=== PATIENT | female | born 1980 | race Caucasian/White ===

== ENCOUNTER 2024-06-21 08:13 | Emergency (ER) | payer BC, SELFPAY ==
[2024-06-21 08:14] VITALS: BP 152/89
[2024-06-21 08:18] VITALS: BP 152/89
[2024-06-21 08:50] VITALS: BMI 38.8
[2024-06-21 09:11] LABS: Urine Albumin Negative (Neg - Trace); Urine Bilirubin Negative (Negative); Urine Character Clear (Clear); Urine Color Yellow; Urine Glucose Negative (Negative); Urine Ketone Negative (Negative); Urine Leukocyte Negative (Negative); Urine Nitrite Negative (Negative); Urine Occult Blood Negative (Negative); Urine Urobilinogen Negative (Neg - 1+)
--- NOTE | 2024-06-21 09:18 | ED.GENMED ---
History of Present Illness
General
Chief Complaint: Urinary Symptoms
Source: patient
Exam Limitations: none
Time Seen by Provider: 06/21/24 08:45
Nursing documentation reviewed up to this point in time: agreed with
History of Present Illness
History of Present Illness:
pt is a 43 y/o F with h/o kidney stones
here for feeling inc urination at night the past 2 nights - she went every 3 hours or so last night
she has some urge to go, and does void, but it is not painful
she has fibroids and usually during menstual cycle she will pee more often
just completed her menses
she has not dysuria, hematura, back pain, fever, chills
she ws just at her pcp a few weeks ago and mentioned these symptoms and had her a1c checked and urine and a1c is 5.8 and urine was neg
she was told maybe she would need to f/u for overactive bladder with urology
she sees a urologist at [facility]
hasn't mad the appt yet
she does repot drinking setlzer before bed last night
Past History
Past History
ED Past Medical History: Other (kidney stones)
ED Past Surgical History: None
Social History
Tobacco: Non-smoker
Alcohol: None
Review of Systems
Review of Systems
Allergies reviewed?: Yes
All Other Systems: Not applicable
Phy Exam
Physical Exam
Physical Exam:
GENERAL: Alert , in no apparent distress
CARDIAC: Regular rate and rhythm .
LUNGS: Clear breath sounds bilaterally, no acute respiratory distress, no wheezes/rales/rhonchi
ABDOMEN: Soft, without focal tenderness, no r/g, no cvat, normal bowel sounds
NEUROLOGICAL: Alert and oriented, no focal neuro deficits
SKIN: Warm and dry, skin intact.
MUSCULOSKELETAL: No edema, well perfused. neg lara's sign
PSYCH: Normal and appropriate interaction.
Course
Orders/Labs/Results
Orders:
Orders
06/21/24 08:54
Urinalysis Reflex To Culture Urgent
Date Specimen was Collected: 06/21/24
Time Specimen was Collected: 08:49
Vital Signs
Initial and Last Documented VS:
Initial Vital Signs
Temp Pulse Resp BP Pulse Ox
98.2 F 73 18 152/89 100
06/21/24 08:14 06/21/24 08:14 06/21/24 08:14 06/21/24 08:14 06/21/24 08:14
Last Documented Vital Signs
Temp Pulse Resp BP Pulse Ox
98.2 F 71 14 133/84 97
06/21/24 08:18 06/21/24 09:28 06/21/24 09:28 06/21/24 09:28 06/21/24 09:28
MDM/Problems Addressed
Differential Diagnosis Includes:
URINARY RETENTION, OVERACTIVE BLADDER, INTERSTITIAL CYCSITIS, UTI
MDM/Problems Addressed:
43 y/o F
noticed for about a few weeks she has had intermtiten urge at night to pee, 2-3 times a night
saw pcp
had normal ua and normal A1C
says she has had more urge lat night and wanted to get checked
did drink seltzer before bed
no pain
no hematuria
no flank pain
exam uremarkable
ua neg
PVR bladder scan 0ml
f/u with urology
avoid liquids at night
gerd diet
and pyridium for tonight x 1 dose
*Critical Care Note
Total Time (30-74mins, 75-104mins- exclusive of procedures): Not Applicable
ED Attending Note
-
Portions of this chart may have been created with voice recognition software.� Occasional wrong word or��sound alike� substitutions may have occurred due to the inherent limitations of voice recognition software.
Discharge Plan
Departure
Patient Disposition: Home (Routine Discharge)
Date of Disposition: 06/21/24
Time of Disposition: 09:35
Patient with high blood pressure during this ER visit?: No
Condition: Fair
Covid-19: Not Applicable
Discharge Problem:
Nocturia
Instructions: Bladder Pain Syndrome (Interstitial Cystitis) (DC)
Prescriptions:
New
phenazopyridine [Pyridium] 200 mg tablet
200 mg PO TID PRN (Reason: Pain) Qty: 6 0RF
No Action
phenazopyridine [Pyridium] 100 mg tablet
100 mg PO TID PRN (Reason: Pain) Qty: 6 0RF
Referrals:
Janelle Munguia DO [Family Provider] - Follow up in 2-3 days
Activity Restrictions/Additional Instructions:
WE ARE NOT SURE THE CAUSE OF YOUR SYPMTOMS
YOUR URINE WAS NORMAL
YOU ARE EMPTYING YOUR BLADDER FULLY
IT PROBABLY IS A GOOD IDEA TO FOLLOW UP WITH YOUR UROLOGIST
IN THE MEANTIME, YOU CAN TRY A DAY OF PYRIDIUM 200 MG 2-3 TIMES A DAY TO SEE IF THIS HELPS, IT WILL COLOR YOUR PEE ORANGE
STOP DRINKING LIQUIDS A FEW HOURS BEFORE BED
FOLLOW UP WITH YOUR DOCTOR AND YOUR UROLOGIST
RETURN FO R BACK PAIN, FEVER, VOMITING, BLOODY URINE ORANY CONCERNS.
TRY A DIET FOR GERD (LOW ACID, NO CITRUS, NOT EATING CHOCOLATE/CAFFEINE) AND SEE IF THIS HELPS.
Interventions
Interventions:
*Risk Screen - Suicide Last Done: 06/21/24 08:14
*General Assessment Last Done: 06/21/24 08:50
*Neglect/Abuse Screening Last Done: 06/21/24 08:14
ED- Fall Risk Assessment Last Done: 06/21/24 08:50
*ED COVID-19 Vaccine History Last Done: 06/21/24 08:14
*Nursing Disposition Last Done: 06/21/24 09:54
ED-Female Genitourinary Assessment Last Done: 06/21/24 08:50
Discharge Date and Time
Discharge Date/Time: 06/21/24 09:55
Print Language: MOH[place]
[2024-06-21 09:28] VITALS: BP 133/84
--- NOTE | 2024-06-21 09:51 | EDRN ---
Kalee SEGURA in room w/pt at this time.
== END 2024-06-21 09:55 | disposition home or self-care (01) ==
LOC: EMR 08:13
PROVIDERS: Physician Assistant; EMERGENCY PHYSICIAN Emergency Medicine; FAMILY PHYSICIAN Family Medicine
DX: R35.1 Nocturia (principal); R35.0 Frequency of micturition; K21.9 Gastro-esophageal reflux disease without esophagitis; D25.9 Leiomyoma of uterus, unspecified; Z87.442 Personal history of urinary calculi; Z88.1 Allergy status to other antibiotic agents; Z88.8 Allergy status to other drugs, medicaments and biological substances
CPT/HCPCS: 99283; 51798; 81003

== ENCOUNTER 2024-08-21 16:53 | Emergency (ER) | payer BC, SELFPAY ==
[2024-08-21 17:03] VITALS: BP 154/87
--- NOTE | 2024-08-21 17:04 | ED.GENMED ---
ED Provider Triage
<Radames Jackson PA-C - Last Filed: 08/21/24 17:06>
-
Patient seen by provider in Triage?: Seen in Triage
Attestation: A medical screening examination has been initiated by a qualified medical provider. Based on the assessment performed at this time, it has been determined that an emergent medical condition may exist and the patient has been informed
that further medical evaluation and possible additional diagnostic testing may be needed.
HPI: 44-year-old female presenting to the ER for cold and flulike symptoms that have been ongoing for 2 days. Patient significant other also has similar symptoms. Did not do any testing prior to arrival to the ER today. COVID and flu testing
ordered. Patient is otherwise hemodynamically stable and in no acute distress
GENERAL: Alert , in no apparent distress
EYE: No visual abnormalities.
NECK: Trachea midline
ENT: No visible abnormalities.
LUNGS: No acute respiratory distress
NEUROLOGICAL: Alert and oriented
SKIN: Skin intact. No visible changes.
MUSCULOSKELETAL: Moving extremities normally
PSYCH: Normal and appropriate interaction.
This is a medical evaluation conducted in person to initiate diagnostic evaluation and provide initial therapeutics. Please see further documentation by the treating clinician.
History of Present Illness
<Radames Jackson PA-C - Last Filed: 08/21/24 17:06>
General
Chief Complaint: Cold/Flu/URI Symptoms
Time Seen by Provider: 08/21/24 17:30
<Rogers Glez DO - Last Filed: 08/21/24 18:37>
History of Present Illness
History of Present Illness:
TIME OF INITIAL ENCOUNTER: 5:30 PM
HPI: The patient has cold and flulike symptoms that have been ongoing for 2 days. Patient significant other also has similar symptoms. Did not do any testing prior to arrival to the ER today. One of her main symptoms though is pressure in the
face and she feels like she did when she has had sinus infection successfully treated for antibiotics in the past. She has an associated 'scratchy' throat. No fevers. No trouble breathing.
EXAM:
GENERAL: Well appearing in minimal distress
HEENT: Moist oral mucosa, normal posterior oropharynx with no edema, erythema, nor exudate, very mild bilateral maxillary sinus tenderness
CARDIOVASCULAR: No murmurs, normal heart rate, regular rhythm, No chest wall tenderness
PULMONARY: No respiratory distress, breath sounds are clear and equal
ABDOMEN: Soft with no peritoneal signs, no tenderness
NEUROLOGIC: Excellent strength all extremities, no coordination deficits
PSYCHIATRIC: Appropriate mental status, normal insight and judgement
EXTREMITIES: Nontender, no edema, moves all extremities equally
SKIN: No rash, no lesions
NUMBER AND COMPLEXITY OF PROBLEMS ADDRESSED AT THE ENCOUNTER
� Chronic conditions affecting care: GERD, anxiety, high blood
� Acute Exacerbation and/or Progression of Chronic Illness: This is an acute problem
� Differential Diagnosis includes: Viral syndrome, influenza, COVID, sinusitis
AMOUNT AND/OR COMPLEXITY OF DATA TO BE REVIEWED AND ANALYZED
� I performed an independent evaluation of and my interpretation is:
EKG:
CT:
X-rays:
Laboratory Studies: COVID and flu testing are both negative
Other:
� Review of other/old records: CBC and chemistries in February 2023 are unremarkable
� Clinical information was obtained by an independent historian: I spoke to the at bedside
� Prescriptions/Medications Considered but not given:
� Further testing considered but not performed:Did not order a chest x-ray as lungs are clear and she has no respiratory complaints
RISK OF COMPLICATIONS AND/OR MORBIDITY OR MORTALITY OF PATIENT MANAGEMENT
� Social determinants of health affecting care: Lives at home
� Discussion with other providers:
� Escalation of care including admission/observation vs risk of discharge considered: Suspect more of a viral syndrome as she has pressure in the face, congestion, and sore throat. She states she was successfully treated with
antibiotics for similar symptoms related to sinusitis in the past.
ANY OTHER UPDATES:
6 PM: I reassessed patient. Very well-appearing.
Past History
<Radames Jackson PA-C - Last Filed: 08/21/24 17:06>
Past History
ED Past Medical History: Other (kidney stones)
ED Past Surgical History: None
Social History
Tobacco: Non-smoker
Alcohol: None
Phy Exam
<Rogers Glez DO - Last Filed: 08/21/24 18:37>
Physical Exam
Physical Exam:
See HPI
Course
<Radames Jackson PA-C - Last Filed: 08/21/24 17:06>
Orders/Labs/Results
Orders:
Orders
08/21/24 17:06
COVID-19 Antigen Urgent
Source: Nasal Swab
Influenza A+B Rapid Molecular Urgent
KENZIE Source: Nasal Swab
Specimen Description:
Vital Signs
Initial and Last Documented VS:
Initial Vital Signs
Temp Pulse Resp BP Pulse Ox
36.7 C 68 16 154/87 100
08/21/24 17:03 08/21/24 17:03 08/21/24 17:03 08/21/24 17:03 08/21/24 17:03
Last Documented Vital Signs
Temp Pulse Resp BP Pulse Ox
36.7 C 68 16 154/87 100
08/21/24 17:03 08/21/24 17:03 08/21/24 17:03 08/21/24 17:03 08/21/24 17:03
<Rogers Glez DO - Last Filed: 08/21/24 18:37>
Orders/Labs/Results
Orders:
Orders
08/21/24 17:06
COVID-19 Antigen Urgent
Source: Nasal Swab
Influenza A+B Rapid Molecular Urgent
KENZIE Source: Nasal Swab
Specimen Description:
Vital Signs
Initial and Last Documented VS:
Initial Vital Signs
Temp Pulse Resp BP Pulse Ox
36.7 C 68 16 154/87 100
08/21/24 17:03 08/21/24 17:03 08/21/24 17:03 08/21/24 17:03 08/21/24 17:03
Last Documented Vital Signs
Temp Pulse Resp BP Pulse Ox
36.7 C 68 16 154/87 100
08/21/24 17:03 08/21/24 17:03 08/21/24 17:03 08/21/24 17:03 08/21/24 17:03
<Rogers Glez DO - Last Filed: 08/21/24 18:37>
*Critical Care Note
Total Time (30-74mins, 75-104mins- exclusive of procedures): Not Applicable
ED Attending Note
<Radames Jackson PA-C - Last Filed: 08/21/24 17:06>
-
Portions of this chart may have been created with voice recognition software.� Occasional wrong word or��sound alike� substitutions may have occurred due to the inherent limitations of voice recognition software.
Discharge Plan
Departure
Patient Disposition: Home (Routine Discharge)
Date of Disposition: 08/21/24
Time of Disposition: 18:00
Patient with high blood pressure during this ER visit?: Yes
Discharge Problem:
Acute viral syndrome, Acute sinusitis
Instructions: Viral Syndrome (DC)
Prescriptions:
New
amoxicillin-pot clavulanate 875-125 mg tablet
1 tab PO BID Qty: 14 0RF
No Action
phenazopyridine [Pyridium] 100 mg tablet
100 mg PO TID PRN (Reason: Pain) Qty: 6 0RF
phenazopyridine [Pyridium] 200 mg tablet
200 mg PO TID PRN (Reason: Pain) Qty: 6 0RF
Activity Restrictions/Additional Instructions:
I suspect that your symptoms are related to a viral syndrome. COVID and flu testing are negative. Although I do not recommend starting an antibiotic yet, I am sending a prescription to your pharmacy to start only if your symptoms persist/worsen
over the next few days. I also recommend trying Zyrtec-D which can be purchased at any pharmacy counter.
Interventions
Interventions:
*Risk Screen - Suicide Last Done: 08/21/24 17:03
*General Assessment Last Done: 08/21/24 17:32
*Neglect/Abuse Screening Last Done: 08/21/24 17:03
ED- Fall Risk Assessment Last Done: 08/21/24 17:32
*ED COVID-19 Vaccine History Last Done: 08/21/24 17:32
*Nursing Disposition Last Done: 08/21/24 18:19
ED- Pulmonary Assessment Last Done: 08/21/24 17:32
Discharge Date and Time
Discharge Date/Time: 08/21/24 18:20
Print Language: CITIZEN OF [place]
[2024-08-21 17:49] LABS: COVID-19 Antigen Negative (Negative)
== END 2024-08-21 18:20 | disposition home or self-care (01) ==
LOC: EMR 16:53
PROVIDERS: Physician Assistant Medical; EMERGENCY PHYSICIAN Emergency Medicine; FAMILY PHYSICIAN Family Medicine
DX: B34.9 Viral infection, unspecified (principal); J01.90 Acute sinusitis, unspecified; Z87.442 Personal history of urinary calculi
CPT/HCPCS: 99282; 87502; 87811

== ENCOUNTER 2024-09-29 15:36 | Emergency (ER) | payer BC, SELFPAY ==
--- NOTE | 2024-09-29 17:20 | EDRN ---
Pt states she has had L knee pain for past 2 days, no known injury. Pain noted on flexion, movement, walking, going up and down stairs. Pain at 7/10 when she has pain.
--- NOTE | 2024-09-29 17:25 | EDRN ---
Pt ambulated to BR at this time w/out difficulty noted.
--- NOTE | 2024-09-29 17:41 | EDRN ---
Leisa Draper NP in room w/pt.
--- NOTE | 2024-09-29 17:47 | EDRN ---
Leisa Draper [employer] returned to room at this time to speak w/ pt.
--- NOTE | 2024-09-29 17:48 | ED.GENMED ---
History of Present Illness
General
Chief Complaint: Musculo-Skeletal Complaint
Source: patient
Exam Limitations: none
Time Seen by Provider: 09/29/24 17:15
Nursing documentation reviewed up to this point in time: agreed with
History of Present Illness
History of Present Illness:
Patient is a 44-year-old female who complains of left knee pain for the past several days. She denies any injury but does report she was carrying groceries up and down the steps. She has been taking Tylenol without relief. She denies any fever
chills redness.
Past History
Past History
ED Past Medical History: Other (kidney stones)
ED Past Surgical History: None
Social History
Tobacco: Non-smoker
Alcohol: None
Review of Systems
Review of Systems
Allergies reviewed?: Yes
All Other Systems: ROS reviewed and negative except as documented in HPI and ROS
Constitutional: Reports no symptoms
Musculoskeletal: Reports other (left knee pain )
Skin: Reports no symptoms
Psychiatric: Reports no symptoms
Phy Exam
General Physical Exam
General Presentation: no apparent distress
General age: appears stated age
General Skin: warm and dry
General Habitus: normal
General Mental: alert
General Hydration: appears well hydrated
Neurological Exam
Neurological Exam: alert and oriented x3
Musculoskeletal Exam
Musculoskeletal Exam: other (lle with strong pulses no obvious swelling to left knee, no erythema full ROM, mild discomfort with full flexion of left knee ; no calf tenderness or swelling)
Skin Exam
Skin Exam: normal color and warm/dry
Psychiatric Exam
Psychiatric Exam: normal mood/affect
Course
Orders/Labs/Results
Orders:
Orders
09/29/24 15:42
Knee, Left 4 or More Views [CR Knee - Left 4 Or More View*] Urgent
Comment: denies injury hurts when goes up the steps
Reason For Exam: left knee pain for two days
Vital Signs
Initial and Last Documented VS:
Initial Vital Signs
Temp Pulse Resp Pulse Ox
98.6 F 73 16 99
09/29/24 15:39 09/29/24 15:39 09/29/24 15:39 09/29/24 15:39
Last Documented Vital Signs
Temp Pulse Resp BP Pulse Ox
98.6 F 79 16 145/98 100
09/29/24 15:39 09/29/24 17:53 09/29/24 17:53 09/29/24 17:53 09/29/24 17:53
MDM/Problems Addressed
Differential Diagnosis Includes:
Not limited to knee sprain strain overuse injury
MDM/Problems Addressed:
Possible overuse knee pain no obvious abnormality on exam no obvious swelling redness fever chills no evidence of infection; x-ray shows degenerative changes.
Will DC with outpatient follow-up. d/c ice/rest, nsaids.
*Radiology
Radiology exam reviewed: radiology read reviewed
*Pulse Oximetry
Patient hypoxic: no
*Critical Care Note
Total Time (30-74mins, 75-104mins- exclusive of procedures): Not Applicable
ED Attending Note
-
Portions of this chart may have been created with voice recognition software.� Occasional wrong word or��sound alike� substitutions may have occurred due to the inherent limitations of voice recognition software.
Discharge Plan
Departure
Patient Disposition: Home (Routine Discharge)
Date of Disposition: 09/29/24
Time of Disposition: 17:50
Patient with high blood pressure during this ER visit?: Yes
Condition: Fair
Discharge Problem:
Acute knee pain
Instructions: Knee Pain (DC)
Prescriptions:
No Action
phenazopyridine [Pyridium] 100 mg tablet
100 mg PO TID PRN (Reason: Pain) Qty: 6 0RF
phenazopyridine [Pyridium] 200 mg tablet
200 mg PO TID PRN (Reason: Pain) Qty: 6 0RF
amoxicillin-pot clavulanate 875-125 mg tablet
1 tab PO BID Qty: 14 0RF
Referrals:
Cam Ramirez MD [Active] -
Activity Restrictions/Additional Instructions:
As discussed your x-ray shows mild degenerative changes., You may take ibuprofen every 8 hours with food. In addition please rest as much as possible.
keep elevated and apply ice 20 minutes at a time several times a day. Follow-up with your family doctor next of days for reevaluation and orthopedics if needed. Return if any worsening of symptoms
Interventions
Interventions:
*Risk Screen - Suicide Last Done: 09/29/24 15:39
*General Assessment Last Done: 09/29/24 17:25
*Neglect/Abuse Screening Last Done: 09/29/24 15:39
ED- Fall Risk Assessment Last Done: 09/29/24 17:25
*ED COVID-19 Vaccine History Last Done: 09/29/24 17:25
*Nursing Disposition Last Done: 09/29/24 18:14
ED-Musculoskeletal Assessment Last Done: 09/29/24 17:25
Discharge Date and Time
Discharge Date/Time: 09/29/24 18:15
Print Language: SWISS
[2024-09-29 17:53] VITALS: BP 145/98; BMI 36.5
== END 2024-09-29 18:15 | disposition home or self-care (01) ==
LOC: EMR 15:36
PROVIDERS: EMERGENCY PHYSICIAN Emergency Medicine; FAMILY PHYSICIAN Family Medicine
DX: M25.562 Pain in left knee (principal)
CPT/HCPCS: 99283; 73564